=== PATIENT | male | born 1995 | race Caucasian/White ===

== ENCOUNTER 2017-03-19 16:18 | Inpatient (IN) | payer OTHER ==
[2017-03-19] MEDS ORDERED: fentaNYL 100 MCG/2 ML INJ IVP ONE (16:31)
[2017-03-19] MEDS ORDERED: HYDROmorphONE/DILAUDID 1 MG/ML INJ IVP ONE ×3 (16:41→17:18)
[2017-03-19] MEDS ORDERED: IOPAMIDOL (ISOVUE-300) 100 ML BTL ONE (16:45)
[2017-03-19 16:48] LABS: PLATELET COUNT 356 10^3/uL (150-400)
[2017-03-19] MEDS ORDERED: HYDROmorphONE/DILAUDID 1 MG/ML INJ ONE ×2 (16:58→21:47)
[2017-03-19 16:59] LABS: INR 1.14 (0.83-1.16); PROTIME(PATIENT) 14.5 SEC (12.0-15.0)
[2017-03-19] MEDS ORDERED: TDAP ADULT 0.5 ML INJ (BOOSTRIX) IM ONE (17:10)
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
[2017-03-19] MEDS ORDERED: LIDOCAINE 1% 300 MG/30 ML SDV ONE (17:34)
[2017-03-19] MEDS ORDERED: BUPIVACAINE 0.5% 30 ML SDV ONE (17:34)
[2017-03-19] MEDS ORDERED: POLYMYXIN B SULFATE 500,000 UNIT/10 ML SYR IRR ONE ×2 (17:35→19:10)
[2017-03-19] MEDS ORDERED: BACITRACIN 50,000 UNITS/10 ML SYR IRR ONE (17:35)
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
[2017-03-19] MEDS ORDERED: fentaNYL 100 MCG/2 ML INJ ONE ×2 (17:56→21:41)
[2017-03-19] MEDS ORDERED: PROPOFOL 200 MG/20 ML VIAL ONE ×2 (17:56→18:18)
[2017-03-19] MEDS ORDERED: SUCCINYLCHOLINE CHLORIDE*ANESTHESIA ONLY*200 MG/10 ML SYR IVP ONE (17:56)
[2017-03-19] MEDS ORDERED: MIDAZOLAM 2 MG/2 ML VIAL ONE (17:59)
[2017-03-19] MEDS ORDERED: ONDANSETRON 4 MG/2 ML VIAL ONE (18:15)
[2017-03-19] MEDS ORDERED: DEXAMETHASONE 4 MG/ML VIAL ONE (18:15)
[2017-03-19] MEDS ORDERED: HYDROmorphONE/DILAUDID 2 MG/ML INJ ONE ×2 (18:19→18:41)
--- NOTE | 2017-03-19 18:31 | PDANEPAE ---
ANE History of Present Illness Patient presents for emergent Left Tibia Nail placement. ANE Past Medical History - Pulmonary History Hx Sleep Apnea: No - Endocrine History Hx Diabetes: No ANE Review of Systems Review of Systems: ANE Patient History - Allergies Allergies/Adverse Reactions: amoxicillin trihydrate [From Augmentin] Allergy (Verified 08/28/14 23:04) potassium clavulanate [From Augmentin] Allergy (Verified 08/28/14 23:04) - NPO status NPO Since - Liquids (Date): 03/19/17 NPO Since - Liquids (Time): 15:30 NPO Since - Solids (Date): 03/19/17 NPO Since - Solids (Time): 15:30 - Smoking Hx Smoking Status: Never smoked ANE Labs/Vital Signs - Labs Result Diagrams: 03/19/17 16:25 03/19/17 16:25 - Vital Signs Blood Pressure: 134/82 Heart Rate: 73 Respiratory Rate: 22 O2 Sat (%): 98 Height: 187.96 cm Weight: 79.379 kg ANE Physical Exam - Airway Neck exam: FROM Mouth exam: poor dentition (Chipped tooth lower right incisor. ) - Pulmonary Pulmonary: no respiratory distress - Cardiovascular Cardiovascular: regular rate and rhythym - ASA Status ASA Status: I, E
[2017-03-19] MEDS ORDERED: ceFAZolin 1 GM VIAL ONE (18:38)
[2017-03-19] MEDS ORDERED: ONDANSETRON 4 MG/2 ML VIAL IVP PRN ×2 (18:46→21:04)
[2017-03-19] MEDS ORDERED: ACETAMINOPHEN 325 MG TAB PO SCH (19:00)
[2017-03-19] MEDS ORDERED: HYDROGEN PEROXIDE 236 ML BOTTLE TP ONE (20:32)
[2017-03-19] MEDS ORDERED: SUGAMMADEX SODIUM 200 MG/2 ML VIAL IVP ONE (20:39)
[2017-03-19] MEDS ORDERED: CALCIUM CHLORIDE 1 GM/10 ML INJ ONE (20:54)
[2017-03-19] MEDS ORDERED: BACITRACIN ZINC 14.2 GM OINTTUBE TP ONE (21:03)
[2017-03-19] MEDS ORDERED: LR 500 ML IV PRN (21:04)
[2017-03-19] MEDS ORDERED: OXYCODONE/APAP 5/325 TAB PO PRN (21:04)
[2017-03-19] MEDS ORDERED: NALOXONE HCL 0.4 MG/ML INJ IVP PRN (21:04)
[2017-03-19] MEDS ORDERED: HYDROCODONE/APAP 5/325 TAB PO PRN (21:04)
[2017-03-19] MEDS: fentaNYL 100 MCG/2 ML INJ IVP PRN ×2 (21:44→22:04)
[2017-03-19] MEDS: HYDROmorphONE/DILAUDID 1 MG/ML INJ IVP PRN ×3 (21:48→23:22)
[2017-03-19] MEDS ORDERED: HEPARIN 5,000 UNIT/0.5 ML SYR SC SCH ×2 (22:00)
--- NOTE | 2017-03-19 22:14 | POSTOPPROG ---
Post Op Note Date of Operation: 03/19/17 Surgeon: Tyler Resendez Ball Fringe Machine Operator: Antonia Bustamante PA-C Anesthesia: GET(General Endotracheal) Pre-op Diagnosis: left open tib fib fracture Post-op Diagnosis: left open tib fib fracture, compartment syndrome Procedure: open reduction internal fixation tibia fracture, fasciotomy Inf/Abcess present in the surg proc area at time of surgery?: No Depth: Deep Incisional (Fascial) EBL: 50-100
--- NOTE | 2017-03-19 23:06 | POSTANESTH ---
Post Anesthetic Evaluation Cardiovascular Status: Tx Hyper/Hypo-tension Respiratory Status: Similar to Pre-op Cond. Level of Consciousness/Mental Status: Can Participate in Eval Pain Control: Adequate, Prn Tx Ordered Nausea/Vomiting Control: Adequate, Prn Tx Ordered Complications Possibly Related to Anesthesia: None Noted (Chipped teeth as per pre-op. Hypertension treated conservatively. Denies pain.)
[2017-03-19] MEDS: oxyCODONE IR 5 MG TAB PO PRN (23:25)
[2017-03-20] MEDS: ACETAMINOPHEN 500 MG TAB PO SCH ×4 (00:09→18:21)
[2017-03-20] MEDS: HYDROmorphONE/DILAUDID 1 MG/ML INJ IVP PRN ×9 (00:42→23:42)
[2017-03-20] MEDS: BACITRACIN ZINC 14.2 GM OINTTUBE TP SCH ×3 (00:44→20:07)
[2017-03-20] MEDS: ceFAZolin 2 GM/DEXTROSE 100 ML IV SCH ×2 (02:31→10:01)
[2017-03-20] MEDS ORDERED: HYDROmorphONE/DILAUDID 1 MG/ML INJ IVP ONE (02:45)
[2017-03-20] MEDS: oxyCODONE IR 5 MG TAB PO PRN ×2 (04:13→08:16)
[2017-03-20] MEDS: HEPARIN 5,000 UNIT/0.5 ML SYR SC SCH ×3 (05:12→23:42)
[2017-03-20] MEDS ORDERED: DIAZEPAM 5 MG TAB PO ONE (05:15)
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
[2017-03-20 05:35] LABS: PLATELET COUNT 260 10^3/uL (150-400)
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
--- NOTE | 2017-03-20 11:28 | TRAUMAPN ---
- Problem/Surgery Performed (1) Abrasion, multiple sites Assessment/Plan: PAD#1 POD#1 03/20/2017 Assessment: The deepest abrasion is on his right knee. It now appears to be a superficial partial thickness skin loss which is better than I expected. Other abrasions ( scalp, right forehead, dorsum of both hands ) all appear superficial and are clean/healing. Due to dressings I could not evaluate the left knee abrasion. Plan: Continue wound care. Subjective: My left leg hurts Objective: Vital Signs Temp Pulse Resp BP Pulse Ox 36.7 C 61 16 164/87 H 99 03/20/17 11:04 03/20/17 11:04 03/20/17 11:04 03/20/17 11:04 03/20/17 11:04 Laboratory Results 03/20/17 04:13 03/20/17 04:13 03/19/17 03/20/17 03/21/17 05:59 05:59 05:59 Intake Total 1482 Output Total 500 Balance -500 1482 PT 14.5 SEC (12.0-15.0) 03/19/17 16:25 INR 1.14 (0.83-1.16) 03/19/17 16:25 BP up this AM secondary to pain and anxiety. Medications are being adjusted. - C-Spine Clearance Cervical Spine Cleared: Yes Provider who Cleared Cervical Spine: Memo Physical Exam - Physical Exam General Appearance: WD/WN, alert, mild distress EENT: other (Abrasions on central scalp and right forehead) Neck: non-tender, full range of motion, supple, normal inspection Respiratory: chest non-tender, lungs clear, normal breath sounds, other (IS to 3000) Abdomen: normal bowel sounds, non-tender, soft Male Genitalia: deferred Rectal: deferred Back: Normal inspection Skin: normal color, warm/dry Extremities: other (Left leg in splint/dave wrap, Abrasions over MC-P joints bilaterally R>L are superficial) Neuro/Psych: no motor/sensory deficits, alert, normal mood/affect, oriented x 3 Time Spent w/Patient (minutes): 25
[2017-03-20] MEDS ORDERED: KETOROLAC 30 MG/1 ML SDV IVP PRN (11:37)
[2017-03-20] MEDS: DIAZEPAM 5 MG TAB PO PRN ×3 (12:04→19:58)
[2017-03-20] MEDS: HYDROmorphONE/DILAUDID 4 MG TAB PO PRN ×3 (13:02→22:08)
[2017-03-20] MEDS ORDERED: chlorproMAZINE HCL 25 MG TAB PO PRN (13:58)
[2017-03-20] MEDS ORDERED: hydrALAZINE 10 MG TAB PO PRN (14:08)
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
[2017-03-20] MEDS: KETOROLAC 30 MG/1 ML SDV IVP SCH (23:41)
[2017-03-21] MEDS: DIAZEPAM 5 MG TAB PO PRN ×3 (01:45→22:21)
[2017-03-21] MEDS: HYDROmorphONE/DILAUDID 4 MG TAB PO PRN ×5 (02:57→22:21)
[2017-03-21] MEDS: ACETAMINOPHEN 500 MG TAB PO SCH ×3 (02:59→17:50)
[2017-03-21] MEDS ORDERED: LR 1,000 ML IV ONE (04:00)
[2017-03-21] MEDS: HYDROmorphONE/DILAUDID 1 MG/ML INJ IVP PRN ×2 (04:12→18:22)
[2017-03-21 04:14] LABS: PLATELET COUNT 168 10^3/uL (150-400)
[2017-03-21] MEDS: LR 1,000 ML IV SCH (05:00)
[2017-03-21] MEDS: HEPARIN 5,000 UNIT/0.5 ML SYR SC SCH ×2 (06:29→14:10)
[2017-03-21] MEDS: KETOROLAC 30 MG/1 ML SDV IVP SCH ×3 (06:31→17:51)
[2017-03-21] MEDS: BACITRACIN ZINC 14.2 GM OINTTUBE TP SCH ×2 (08:50→22:20)
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
[2017-03-21] MEDS ORDERED: NS 1,000 ML IV ONE ×2 (11:36→13:56)
[2017-03-21] MEDS ORDERED: BISACODYL 10 MG SUPP PR PRN (12:17)
[2017-03-21] MEDS ORDERED: LACTULOSE 20 GM/30 ML UDCUP PO PRN (12:17)
[2017-03-21] MEDS: chlorproMAZINE HCL 25 MG TAB PO SCH ×3 (13:21→22:21)
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
[2017-03-21] MEDS ORDERED: IOPAMIDOL (ISOVUE 370) 100 ML BTL IV ONE (16:09)
[2017-03-21] MEDS: SENNOSIDES/DOCUSATE SODIUM TAB PO SCH (22:21)
[2017-03-22] MEDS: KETOROLAC 30 MG/1 ML SDV IVP SCH ×4 (01:10→17:36)
[2017-03-22] MEDS: LR 1,000 ML IV SCH ×2 (02:36→11:30)
[2017-03-22] MEDS: ACETAMINOPHEN 500 MG TAB PO SCH ×3 (02:36→19:46)
[2017-03-22 04:46] LABS: PLATELET COUNT 132 10^3/uL (150-400)
[2017-03-22] MEDS: HYDROmorphONE/DILAUDID 4 MG TAB PO PRN ×4 (05:21→19:47)
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
[2017-03-22] MEDS: SENNOSIDES/DOCUSATE SODIUM TAB PO SCH ×2 (09:45→19:46)
[2017-03-22] MEDS: DIAZEPAM 5 MG TAB PO PRN (09:46)
[2017-03-22] MEDS: POLYETHYLENE GLYCOL 3350 17 GM PKT PO PRN (09:47)
[2017-03-22] MEDS: BACITRACIN ZINC 14.2 GM OINTTUBE TP SCH (09:47)
[2017-03-22] MEDS: chlorproMAZINE HCL 25 MG TAB PO SCH ×2 (09:52→17:35)
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
--- NOTE | 2017-03-22 16:10 | ASMTCMCOM ---
CM Note CM Note Notes: PT/OT now recommending Inpt rehab. Pt with fever today. Discussed w/RN who said pt's mom here today also and is very concerned about him returning to school or going back to [facility] [place] and she thinks he may need something like In Pt Rehab. Discussed with hospitalist who was agreeable to looking at in pt rehab as possibility but stated that pt not near dc today with medical issues. Speech eval ordered. LVM for Berkley at [facility] Rehab. RENETTA w/f. Date Signed: 03/22/2017 04:10 PM Electronically Signed By:Shirley Meehan RN
[2017-03-22] MEDS: HYDROmorphONE/DILAUDID 1 MG/ML INJ IVP PRN (16:45)
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
[2017-03-23] MEDS: BACITRACIN ZINC 14.2 GM OINTTUBE TP SCH ×3 (00:01→20:53)
[2017-03-23] MEDS: KETOROLAC 30 MG/1 ML SDV IVP SCH ×4 (00:01→17:54)
[2017-03-23] MEDS: DIAZEPAM 5 MG TAB PO PRN ×2 (00:02→10:54)
[2017-03-23] MEDS: HYDROmorphONE/DILAUDID 4 MG TAB PO PRN (00:02)
[2017-03-23] MEDS: chlorproMAZINE HCL 25 MG TAB PO SCH ×4 (00:02→20:48)
[2017-03-23] MEDS: ACETAMINOPHEN 500 MG TAB PO SCH ×3 (03:21→18:43)
[2017-03-23 04:59] LABS: PLATELET COUNT 179 10^3/uL (150-400)
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
[2017-03-23] MEDS: oxyCODONE IR 5 MG TAB PO PRN ×3 (09:19→20:48)
[2017-03-23] MEDS: SENNOSIDES/DOCUSATE SODIUM TAB PO SCH ×2 (09:19→20:49)
[2017-03-23] MEDS: MAGNESIUM HYDROXIDE 30 ML UDCUP PO PRN (09:20)
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
[2017-03-24] MEDS: KETOROLAC 30 MG/1 ML SDV IVP SCH ×5 (00:10→22:35)
[2017-03-24] MEDS: oxyCODONE IR 5 MG TAB PO PRN ×4 (04:21→22:39)
[2017-03-24] MEDS: ACETAMINOPHEN 500 MG TAB PO SCH ×3 (04:21→19:17)
[2017-03-24] MEDS: chlorproMAZINE HCL 25 MG TAB PO SCH ×3 (08:46→22:39)
[2017-03-24] MEDS: SENNOSIDES/DOCUSATE SODIUM TAB PO SCH ×2 (08:47→22:40)
[2017-03-24] MEDS: BACITRACIN ZINC 14.2 GM OINTTUBE TP SCH ×2 (08:47→22:38)
--- NOTE | 2017-03-24 08:48 | PDIAF ---
- Diagnosis Diagnosis: left tib/fib fracture, compartment syndrome Code Status: Full Code - Medication Management Discharge Medications: Medications to Continue on Transfer Acetaminophen [Tylenol ES 500 mg (*)] 1,000 mg PO Q8H #90 tab 03/24/17 [Last Taken Unknown] Bacitracin Zinc [Bacitracin Ointment Tube] 1 rafia TP BID #1 oint 03/24/17 [Last Taken Unknown] Polyethylene Glycol 3350 [Miralax 17 gm (*)] 17 gm PO DAILY PRN #0 pkt 03/24/17 [Last Taken Unknown] Sennosides/Docusate Sodium [Senokot-S] 1 - 2 tab PO BID tab 03/24/17 [Last Taken Unknown] oxyCODONE IR [Oxycodone Ir (*)] 5 - 10 mg PO Q4H PRN #30 tab 03/24/17 [Last Taken Unknown] Discharge Medications: Refer to the Discharge Home Medication list for PRN reason. PICC Care - Routine: N/A - Orders Services needed: Registered Nurse, Physical Therapy, Occupational Therapy Diet Recommendation: no restrictions on diet Additional: Follow up with Dr. Henry Resendez in 1 week - Follow Up Care Current Providers and Referrals: Patient,NotPresent [Unknown] - As per Instructions Tyler Resendez MD [Medical Doctor] -
[2017-03-24] MEDS: MAGNESIUM HYDROXIDE 30 ML UDCUP PO PRN (11:01)
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
--- NOTE | 2017-03-24 17:13 | PDIAF ---
- Diagnosis Diagnosis: left tib/fib fracture, compartment syndrome Code Status: Full Code - Medication Management Discharge Medications: Medications to Continue on Transfer Acetaminophen [Tylenol ES 500 mg (*)] 1,000 mg PO Q8H #90 tab 03/24/17 [Last Taken Unknown] Bacitracin Zinc [Bacitracin Ointment Tube] 1 rafia TP BID #1 oint 03/24/17 [Last Taken Unknown] Polyethylene Glycol 3350 [Miralax 17 gm (*)] 17 gm PO DAILY PRN #0 pkt 03/24/17 [Last Taken Unknown] Sennosides/Docusate Sodium [Senokot-S] 1 - 2 tab PO BID tab 03/24/17 [Last Taken Unknown] oxyCODONE IR [Oxycodone Ir (*)] 5 - 10 mg PO Q4H PRN #30 tab 03/24/17 [Last Taken Unknown] Discharge Medications: Refer to the Discharge Home Medication list for PRN reason. PICC Care - Routine: N/A - Orders Services needed: Registered Nurse, Physical Therapy, Occupational Therapy Diet Recommendation: no restrictions on diet Activity/Weight Bearing Restrictions: Nonweightbearing LLE Additional: Follow up with Dr. Henry Resendez in 1 week - Follow Up Care Current Providers and Referrals: Tyler Resendez MD [Medical Doctor] - Patient,NotPresent [Unknown] - As per Instructions
[2017-03-24] MEDS: POLYETHYLENE GLYCOL 3350 17 GM PKT PO PRN (17:35)
[2017-03-24] MEDS: LR 1,000 ML IV SCH (18:30)
[2017-03-25] MEDS: ACETAMINOPHEN 500 MG TAB PO SCH ×3 (03:20→17:50)
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
[2017-03-25] MEDS: KETOROLAC 30 MG/1 ML SDV IVP SCH ×2 (05:23→11:36)
[2017-03-25] MEDS: oxyCODONE IR 5 MG TAB PO PRN ×5 (06:19→22:48)
[2017-03-25] MEDS: chlorproMAZINE HCL 25 MG TAB PO SCH ×2 (09:43→16:02)
[2017-03-25] MEDS: SENNOSIDES/DOCUSATE SODIUM TAB PO SCH ×2 (09:43→19:47)
[2017-03-25] MEDS: POLYETHYLENE GLYCOL 3350 17 GM PKT PO PRN (09:43)
[2017-03-25] MEDS: BACITRACIN ZINC 14.2 GM OINTTUBE TP SCH ×2 (09:57→20:02)
[2017-03-25] MEDS: POLYETHYLENE GLYCOL 3350 17 GM PKT PO SCH (13:34)
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
[2017-03-25] MEDS ORDERED: chlorproMAZINE HCL 25 MG TAB PO PRN (16:05)
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
[2017-03-26 03:55] VITALS: RESP 16
[2017-03-26] MEDS: oxyCODONE IR 5 MG TAB PO PRN ×4 (03:55→13:04)
[2017-03-26] MEDS: ACETAMINOPHEN 500 MG TAB PO SCH ×2 (03:56→13:16)
[2017-03-26] MEDS: POLYETHYLENE GLYCOL 3350 17 GM PKT PO SCH (09:22)
[2017-03-26] MEDS: SENNOSIDES/DOCUSATE SODIUM TAB PO SCH (09:22)
[2017-03-26] MEDS: BACITRACIN ZINC 14.2 GM OINTTUBE TP SCH (09:35)
[2017-03-26 12:10] VITALS: BP 138/75; PULSE 93; O2SAT 94
[2017-03-26 12:21] VITALS: TEMP 98
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
[2017-03-26] MEDS: MAGNESIUM HYDROXIDE 30 ML UDCUP PO PRN (13:16)
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
== END 2017-03-26 14:41 | disposition home or self-care (01) | DRG 493 ==
LOC: EDUNIT# → FSGY 17:33 → F3N 23:00
PROVIDERS: ADMIT Orthopaedic Surgery Hand Surgery; ATTEND Surgery
PROC: 0HQNXZZ Repair Left Foot Skin, External Approach (ICD-10-PCS; principal; 2017-03-19 18:30)
PROC: 0QBH0ZZ Excision of Left Tibia, Open Approach (ICD-10-PCS; principal; 2017-03-19 18:30)
PROC: 0QBK0ZZ Excision of Left Fibula, Open Approach (ICD-10-PCS; principal; 2017-03-19 18:30)
PROC: 0J8P0ZZ Division of Left Lower Leg Subcutaneous Tissue and Fascia, Open Approach (ICD-10-PCS; principal; 2017-03-19 18:30)
PROC: 0QSH04Z Reposition Left Tibia with Internal Fixation Device, Open Approach (ICD-10-PCS; principal; 2017-03-19 18:30)
PROC: 30233N1 Transfusion of Nonautologous Red Blood Cells into Peripheral Vein, Percutaneous Approach (ICD-10-PCS; 2017-03-21)
DX: S82.252B Displaced comminuted fracture of shaft of left tibia, initial encounter for open fracture type I or II (principal); S82.452B Displaced comminuted fracture of shaft of left fibula, initial encounter for open fracture type I or II; T79.A22A Traumatic compartment syndrome of left lower extremity, initial encounter; S06.0X0A Concussion without loss of consciousness, initial encounter; S91.312A Laceration without foreign body, left foot, initial encounter; V23.4XXA Motorcycle driver injured in collision with car, pick-up truck or van in traffic accident, initial encounter; Y92.414 Local residential or business street as the place of occurrence of the external cause; T80.89XA Other complications following infusion, transfusion and therapeutic injection, initial encounter; R50.9 Fever, unspecified; D62 Acute posthemorrhagic anemia; R03.0 Elevated blood-pressure reading, without diagnosis of hypertension; R06.6 Hiccough; R00.0 Tachycardia, unspecified; K59.00 Constipation, unspecified; J06.9 Acute upper respiratory infection, unspecified; R74.0 Nonspecific elevation of levels of transaminase and lactic acid dehydrogenase [LDH]
CPT/HCPCS: 80307; 82947-QW; 92507-GN; 92523-GN; 96365; 97116-GP; 97162-GP; 97165-GO; 97530-GO; 97530-GP; 97535-GO; C1713; C1769; G0480; J0330; J0690; J1100; J1170; J1885; J2250; J2405; J2704; J3010; P9016; Q9967

== ENCOUNTER → 2017-07-17 | Outpatient (CLI) | payer OTHER | LOC: FIMAGING 10:59 | PROVIDERS: ATTEND Physician Assistant | DX: S82.202D Unspecified fracture of shaft of left tibia, subsequent encounter for closed fracture with routine healing (principal); S82.402D Unspecified fracture of shaft of left fibula, subsequent encounter for closed fracture with routine healing ==

== ENCOUNTER 2017-07-29 11:08 | Observation (INO) | payer OTHER ==
[2017-07-29] MEDS ORDERED: BUPIVACAINE 0.25% 30 ML SDV ONE (11:17)
[2017-07-29] MEDS ORDERED: BUPIVACAINE 0.5% 10 ML SDV ONE (11:18)
[2017-07-29] MEDS ORDERED: POLYMYXIN B SULFATE 500,000 UNIT/10 ML SYR IRR ONE (11:19)
[2017-07-29] MEDS ORDERED: BACITRACIN 50,000 UNITS/10 ML SYR IRR ONE (11:19)
[2017-07-29] MEDS ORDERED: LR 1,000 ML IV ONE ×2 (11:22→11:23)
--- NOTE | 2017-07-29 11:53 | PDHPUP ---
History & Physical Update H&P update statement: This history and physical update is based on an assessment of the patient which was completed after admission or registration (within 24 hours), but prior to the surgery/procedure. H&P update: H&P reviewed & patient examined, no change in patient's condition since H&P completed
[2017-07-29] MEDS ORDERED: MIDAZOLAM 2 MG/2 ML VIAL IVP ONE (12:01)
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
[2017-07-29] MEDS ORDERED: morphINE PF 5 MG/10 ML INJ ONE (12:19)
[2017-07-29] MEDS ORDERED: PROPOFOL 200 MG/20 ML VIAL ONE (12:29)
[2017-07-29] MEDS ORDERED: PROPOFOL/EMULSION 500 MG/50 ML BOTTLE IV ONE ×5 (12:35→15:43)
[2017-07-29] MEDS ORDERED: fentaNYL 100 MCG/2 ML INJ ONE (13:39)
[2017-07-29] MEDS ORDERED: PROMETHAZINE HCL 25 MG/ML INJ IVP PRN (16:12)
[2017-07-29] MEDS ORDERED: fentaNYL 100 MCG/2 ML INJ IVP PRN (16:12)
[2017-07-29] MEDS ORDERED: DEXAMETHASONE 4 MG/ML VIAL IVP PRN (16:12)
[2017-07-29] MEDS ORDERED: HYDROmorphONE/DILAUDID 2 MG/ML INJ IVP PRN ×2 (16:12)
[2017-07-29] MEDS ORDERED: NALOXONE HCL 0.4 MG/ML INJ IVP PRN ×2 (16:12→17:30)
[2017-07-29] MEDS ORDERED: ONDANSETRON 4 MG/2 ML VIAL IVP PRN ×2 (16:12→17:30)
--- NOTE | 2017-07-29 16:12 | POSTOPPROG ---
Post Op Note Date of Operation: 07/29/17 Surgeon: Mark Alicea Sleeping Car Conductor: Justin Anesthesiologist: Warm Anesthesia: GET(General Endotracheal) Pre-op Diagnosis: L tibial non union Post-op Diagnosis: same Indication: above Procedure: left tibia non union repair, HWR, JERMAN, Jimmie Inf/Abcess present in the surg proc area at time of surgery?: No EBL: 100-500
--- NOTE | 2017-07-29 16:17 | POSTANESTH ---
Post Anesthetic Evaluation Cardiovascular Status: Normal, Stable, Tx Over/Under Hydration Level of Consciousness/Mental Status: Can Participate in Eval, Mildly Sleepy, Arousable Pain Control: Adequate, Prn Tx Ordered Nausea/Vomiting Control: Adequate, Prn Tx Ordered Complications Possibly Related to Anesthesia: None Noted
[2017-07-29] MEDS ORDERED: RN MESSAGE:REGARDING ANALGESIC ORDERING DR MISC SCH (17:30)
[2017-07-29] MEDS ORDERED: ceFAZolin 2 GM/SWFI 2 GM/20 ML SYR IVP SCH (18:00)
[2017-07-29] MEDS: RN MESSAGE:DATE/TIME OF ADMIN MISC SCH (18:04)
--- NOTE | 2017-07-29 18:25 | GOP ---
[f rep st] OPERATIVE REPORT DATE OF OPERATION: 07/29/2017 SURGEON: Mark Alicea MD PROGRAM ENGINEER: Kendall Anderson SA. ANESTHESIA: General. PREOPERATIVE DIAGNOSIS: 1. Left tibial nonunion. 2. Retained hardware. 3. Equina varus foot deformity. POSTOPERATIVE DIAGNOSIS: 1. Left tibial nonunion. 2. Retained hardware. 3. Equina varus foot deformity. PROCEDURE PERFORMED: 1. Repair, left tibial nonunion. 2. Removal of hardware, left tibia. 3. Harvesting of bone graft from femur with JERMAN (reamer temperature regulator aspirator). 4. Left Jimmie procedure, gastroc recession. FINDINGS: SPECIMENS: None. ESTIMATED BLOOD LOSS: 200 mL. INDICATIONS: This is a 22-year-old male who had previously undergone plate fixation of a tibial frac ture and fasciotomies for compartment syndrome. He presented at greater than 4 months with no eviden ce of healing of the tibial fracture with slight malalignment as well as equina varus foot contractur e which seemed to be getting worse. I did feel that he did not have any function of his extensors of his ankle or his toes. However, I felt this foot deformity was secondary to the tibial nonunion, an d we would have to get a union at the tibia first before his foot deformity could be formerly address ed. I did in house counsel him doing a Jimmie to help portion his equinus contracture. We discussed risks o f nonunion, malunion, nerve injury, continued pain, infection, continued foot deformity, need for fur ther correction, in particular his foot deformity, possible need for amputation in the future. He wo uld like to proceed. Informed consent was obtained. All questions answered, and he was marked preop eratively. DESCRIPTION OF PROCEDURE: He was taken to the operative suite. Antibiotics were held. He was steri megan prepped and draped in the normal fashion. Time-out was performed verifying the site, side, and the location, agreement with the team. I used the old medial incision and opened this up, and then dissected around the gastroc myotendinous junction. Performed a Jimmie release in the myotendinous junction, and attained a few degrees more of ankle dorsiflexion. I then elevated the gastroc musculature directly off the plate through an ol d previous scarring and exposed the plate. I removed the screws and the plate and sent these for cul ture. I then debrided the nonunion site sending this tissue for culture as well as a swab. He did h ave some loose chunks of cortical bone which had to be removed. There was intact piece of cortical b one on the back which was at least partially healed, and I left this intact. There was a complete no nunion, however, through the entire bone, this was unstable. Prepared this bone for further healing, removing all scar. I then made an incision at the knee and split the patellar tendon. Defined the entry point for the t ibia radiographically. Placed a guide pin through this using a reamer, checking AP and lateral x-ray s. Then placed a ball-tipped guidewire and directly passed this across the nonunion site. I then re aleena up to an 11, sequentially starting 8.5. The tourniquet had been dropped before reaming. Next, the distal femoral insertion point was identif ied. Two wires placed up this using an entry reamer. I selected a 12 mm JERMAN, and placed this up the femur, and used the reamer temperature regulator aspirator. Obtained about 40 cc of bone graft. I then came ba ck to the nonunion site. I packed bone graft and BMP on the far side of this posteriorly and lateral ly. I then positioned the tibia in what I felt was the most reduced position, paying attention to le ngth alignment and rotation. Then put the nail down. Checked this fluoroscopically. Then checked h is rotation. I then placed proximal interlocks as well as distal interlocks. I then placed the rest of the bone graft and BMP all around the nonunion site, and this filled the defect completely. He w as irrigated, closed with #1 Vicryl, 0 Vicryl, 2-0 Vicryl, 3-0 nylon. In a splint and sterile dressi ng, taken to PACU in stable condition. IMPLANTS: Synthes tibial nail, 375 x 10 mm with 4 interlocking screws as well as a small BMP. COMPLICATIONS: None. DRAINS: None. CONDITION: Stable. /[id number]/MODL
[2017-07-29] MEDS: oxyCODONE IR 5 MG TAB PO PRN (20:02)
[2017-07-29] MEDS: ceFAZolin 2 GM/SWFI 2 GM/20 ML SYR IVP SCH (21:57)
[2017-07-29] MEDS: ONDANSETRON 4 MG/2 ML VIAL IVP PRN (21:58)
[2017-07-29] MEDS ORDERED: ceFAZolin 2 GM/DEXTROSE 100 ML IV SCH (22:00)
[2017-07-30] MEDS: oxyCODONE IR 5 MG TAB PO PRN ×3 (00:13→09:11)
[2017-07-30] MEDS: ceFAZolin 2 GM/SWFI 2 GM/20 ML SYR IVP SCH (05:57)
[2017-07-30] MEDS: RN MESSAGE:DATE/TIME OF ADMIN MISC SCH (07:40)
[2017-07-30] MEDS ORDERED: ENOXAPARIN 40 MG/0.4 ML SYR SC SCH (09:00)
[2017-07-30] MEDS: ONDANSETRON 4 MG/2 ML VIAL IVP PRN (09:20)
[2017-07-30] MEDS ORDERED: oxyCODONE IR 5 MG TAB PO PRN (10:49)
[2017-07-30] MEDS ORDERED: morphINE SR 15 MG TAB PO SCH (11:00)
[2017-07-30] MEDS ORDERED: PROMETHAZINE HCL 25 MG/ML INJ IVP ONE (11:00)
[2017-07-30 11:36] VITALS: RESP 16
[2017-07-30] MEDS: ACETAMINOPHEN 325 MG TAB PO PRN ×2 (13:38→17:20)
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
[2017-07-30 16:29] VITALS: BP 142/93; PULSE 73; TEMP 98.9; O2SAT 96
--- NOTE | 2017-07-30 16:39 | ASMTCMCOM ---
CM Note CM Note Notes: Pt medically stable for d/c, no CM d/c needs identified. Date Signed: 07/30/2017 04:38 PM Electronically Signed By:JAKUB Null
--- NOTE | 2017-07-31 09:47 | GDS ---
[f rep st] DISCHARGE SUMMARY HOSPITAL COURSE: He was admitted after a repair of a nonunion of the left tibia with rehab bone tara ting, hardware removal and Jimmie procedure. Initially, he had significant pain, we were able to ge t this under control and switch him to oral pain medicine. He is able to progress with therapy and m obilize. He initially had some numbness and coldness in the foot. However, this did improve with el evation, and he did report sensation in his toes and was able to move them. He still had swelling. In general, he met criteria for discharge. DISPOSITION: He was sent home with his parents on a regular diet. He will ice and elevate the left lower extremity, will stay off this, be nonweightbearing, and he is using crutches. He was given pre scriptions for MS Contin, oxycodone, Ultram, as well as take an aspirin a day 325 for DVT prophylaxis . He will follow up with me as scheduled on August 08 for removal of splint and wound check. /[id number]/MODL
== END 2017-07-30 18:29 | disposition home or self-care (01) ==
LOC: F3N 11:08
PROVIDERS: ADMIT Orthopaedic Surgery; ATTEND Orthopaedic Surgery
DX: S82.252K Displaced comminuted fracture of shaft of left tibia, subsequent encounter for closed fracture with nonunion (principal); M62.462 Contracture of muscle, left lower leg
CPT/HCPCS: 27687; 27724; 76001; 97161; 97166; 97535; C1769; G0378; C1713; J0171; J0690; J1170; J1650; J2250; J2270; J2274; J2405; J2704; J3010